=== PATIENT | male | born 1945 | race Caucasian/White ===

== ENCOUNTER 2016-11-19 06:03 | Inpatient (IN) | payer OTHER, MEDICARE ==
[~2016-11-19] VITALS: Ht 175.3 cm; Wt 66.7 kg
[~2016-11-19 06:03] MED LIST: TAMIFLU75 MG PO; XOPENEX1.25 MG/3 IH
[2016-11-19 06:43] LABS: CHLORIDE 102 mEq/L (99-109); POTASSIUM 3.8 mEq/L (3.7-5.4); SODIUM 141 mEq/L (136-147)
[2016-11-19 06:45] LABS: EOSINOPHIL (%) 0.5 % (0-5); GLUCOSE 112 mg/dL (70-99); IMMATURE GRANULOCYTE (%) 0.2 % (0.0-0.7); LYMPHOCYTE COUNT 0.9 K/uL (1.0-2.8); MCH 30.4 PG (29.0-34.0); MCHC 32.8 G/DL (30.0-36.0); MCV 92.8 FL (86-99); MEAN PLAT.VOLUME 11.4 uM^3 (9.0-12.4); MONOCYTE (%) 9.9 % (3-12); MONOCYTE COUNT 0.6 K/uL (0-0.8); NEUTROPHIL (%) 73.4 % (45-76); NEUTROPHIL COUNT 4.5 K/uL (1.8-6.4); PLATELET COUNT 173 K/uL (156-360); RBC DIS.WIDTH-CV 14.6 % (11.8-14.6); RBC DIS.WIDTH-SD 49.6 % (39-53); RED BLOOD COUNT 4.31 M/uL (4.00-5.50); WHITE BLOOD COUNT 6.1 K/uL (4.1-10.2)
[2016-11-19 06:46] LABS: ANION GAP 8 MEQ/L (2-14)
[2016-11-19 06:49] LABS: GFR ESTIMATE (CALCULATED) > 59 mL/min/; UREA NITROGEN (BUN) 9 mg/dL (9-23)
[2016-11-19 06:54] LABS: TROP-I INTERPRETATION NEGATIVE; TROPONIN-I < 0.01 ng/mL (0.0-0.30)
[2016-11-19] MEDS ORDERED: SPIRIVA1 INHALATI IH (08:12)
[2016-11-19] MEDS ORDERED: ATROVENT 00.5 MG/2.5 IH (08:12)
[2016-11-19] MEDS ORDERED: LORAZEPAM1 MG PO (08:13)
[2016-11-19] MEDS ORDERED: PREDNISONE5 MG PO (08:13)
[2016-11-19] MEDS ORDERED: PRIMIDONE250 MG PO (08:14)
[2016-11-19] MEDS ORDERED: CALCIUM 500 MG1 EACH PO (08:14)
[2016-11-19] MEDS ORDERED: MUCINEX1200 MG PO (08:15)
[2016-11-19] MEDS ORDERED: VITAMIN D32000 UNI1 PO (08:15)
[2016-11-19] MEDS ORDERED: PROBIOTIC1 EAC1 PO (08:16)
[2016-11-19] MEDS ORDERED: FIBER500 MG PO (08:16)
[2016-11-19] MEDS ORDERED: CLOTRIMAZOLE10 MG PO (08:16)
[2016-11-19] MEDS ORDERED: LEVALBUTER1.25 MG/0. IH (08:17)
[2016-11-19] MEDS ORDERED: SALINE NASAL SP45 ML BOTH NARES (08:17)
[2016-11-19] MEDS ORDERED: SYMBICORT60 INHALAT IH (08:18)
[2016-11-19] MEDS ORDERED: NIZORAL A-D120 ML TP (08:18)
[2016-11-19] MEDS ORDERED: THEOPHYLLINE400 MG PO (08:18)
[2016-11-19 10:10] LABS: THEOPHYLLINE 2.5 MCG/ML (10-20)
[2016-11-19 10:35] VITALS: BP 115/68
[2016-11-19 14:26] LABS: INFLUENZA A VIRAL ANTIGEN NEGATIVE; INFLUENZA B VIRAL ANTIGEN NEGATIVE
[2016-11-19 15:41] VITALS: BP 121/66
[2016-11-19 15:57] LABS: TROP-I INTERPRETATION NEGATIVE; TROPONIN-I 0.02 ng/mL (0.0-0.30)
[2016-11-19 20:13] VITALS: BP 139/76
[2016-11-19 23:06] VITALS: BP 136/73
[2016-11-20 08:36] VITALS: BP 133/67
[2016-11-20 11:33] VITALS: BP 135/62
[2016-11-20 15:44] VITALS: BP 130/76
[2016-11-20 21:09] VITALS: BP 128/70
[2016-11-21 00:03] VITALS: BP 131/69
[2016-11-21 04:05] VITALS: BP 105/61
[2016-11-21 06:29] LABS: EOSINOPHIL (%) 0 % (0-5); HEMATOCRIT 35.9 % (38.0-50.0); IMMATURE GRANULOCYTE (%) 0.2 % (0.0-0.7); LYMPHOCYTE COUNT 0.8 K/uL (1.0-2.8); MCHC 33.1 G/DL (30.0-36.0); MCV 93.5 FL (86-99); MEAN PLAT.VOLUME 11.8 uM^3 (9.0-12.4); MONOCYTE (%) 13.5 % (3-12); MONOCYTE COUNT 0.7 K/uL (0-0.8); NEUTROPHIL (%) 69.9 % (45-76); NEUTROPHIL COUNT 3.6 K/uL (1.8-6.4); PLATELET COUNT 169 K/uL (156-360); RBC DIS.WIDTH-CV 14.7 % (11.8-14.6); RED BLOOD COUNT 3.84 M/uL (4.00-5.50); WHITE BLOOD COUNT 5.1 K/uL (4.1-10.2)
[2016-11-21 06:55] LABS: ALKALINE PHOSPHATASE 64 IU/L (3-129); ANION GAP 9 MEQ/L (2-14); CHLORIDE 98 MEQ/L (99-109); GFR ESTIMATE (CALCULATED) > 59 mL/min/; GLUCOSE 115 mg/dL (70-99); SAMPLE HEMOLYSIS CHECK 0; SAMPLE ICTERIC CHECK 0; SAMPLE LIPEMIA CHECK 0; SODIUM 138 MEQ/L (136-147); TOTAL BILIRUBIN 0.3 MG/DL (0.0-1.0); UREA NITROGEN (BUN) 13 mg/dL (9-23)
[2016-11-21 06:58] LABS: POTASSIUM 4.8 MEQ/L (3.7-5.4)
[2016-11-21 12:00] VITALS: BP 111/73
[2016-11-21 17:38] VITALS: BP 145/67
[2016-11-21 19:50] VITALS: BP 126/81
[2016-11-22 08:08] VITALS: BP 115/63
[2016-11-22 11:37] VITALS: BP 119/60
[2016-11-22] MEDS ORDERED: CEFTIN500 MG PO (14:55)
[2016-11-22] MEDS ORDERED: BENZONATATE100 MG PO (14:56)
[2016-11-22] MEDS ORDERED: PREDNISONE20 MG PO (14:57)
== END 2016-11-22 16:53 | disposition home or self-care (01) | DRG 190 ==
LOC: EME → EDBD 06:03 → EDOF 08:06 → 5WEST 08:06 → 2EASTP 11-20 09:16
PROVIDERS: Emergency Medicine; Hospitalist; Internal Medicine
DX: J44.1 Chronic obstructive pulmonary disease with (acute) exacerbation (principal); J96.21 Acute and chronic respiratory failure with hypoxia; J44.0 Chronic obstructive pulmonary disease with (acute) lower respiratory infection; J20.9 Acute bronchitis, unspecified; K21.9 Gastro-esophageal reflux disease without esophagitis; F41.9 Anxiety disorder, unspecified; Z99.81 Dependence on supplemental oxygen; Z88.5 Allergy status to narcotic agent; Z87.891 Personal history of nicotine dependence
CPT/HCPCS: 71010; 71250; 80048; 80053; 80198; 83880; 84484; 85025; 85379; 87040; 87070; 87205; 87502; 87651 90; 93005; 94640; 94640 76; 94667; 94760; 94799; 99202; 99281; 99285; G0378; J0456; J0696; J1650; J2930; J7050; J7644

== ENCOUNTER 2017-03-23 11:44 | Inpatient (IN) | payer OTHER, MEDICARE ==
[~2017-03-23] VITALS: Ht 172.7 cm; Wt 64.8 kg
[~2017-03-23 11:44] MED LIST changes: +ATROVENT 00.5 MG/2.5 IH; +BENZONATATE100 MG PO; +CALCIUM 500 MG1 EACH PO; +CEFTIN500 MG PO; +CLOTRIMAZOLE10 MG PO; +FIBER500 MG PO; +LEVALBUTER1.25 MG/0. IH; +LORAZEPAM1 MG PO; +MUCINEX1200 MG PO; +NIZORAL A-D120 ML TP; +PREDNISONE20 MG PO; +PREDNISONE5 MG PO; +PRIMIDONE250 MG PO; +PROBIOTIC1 EAC1 PO; +SALINE NASAL SP45 ML BOTH NARES; +SPIRIVA1 INHALATI IH; +SYMBICORT60 INHALAT IH; +THEOPHYLLINE400 MG PO; +VITAMIN D32000 UNI1 PO
[2017-03-23 14:32] LABS: HEMATOCRIT 40.1 % (38.0-50.0); MCH 30.7 PG (29.0-34.0); MCHC 33.4 G/DL (30.0-36.0); MEAN PLAT.VOLUME 11.2 uM^3 (9.0-12.4); PLATELET COUNT 202 K/uL (156-360); RBC DIS.WIDTH-CV 13.8 % (11.8-14.6); RBC DIS.WIDTH-SD 46.5 % (39-53); RED BLOOD COUNT 4.36 M/uL (4.00-5.50); WHITE BLOOD COUNT 7.9 K/uL (4.1-10.2)
[2017-03-23 14:41] LABS: CHLORIDE 101 mEq/L (99-109); POTASSIUM 4.5 mEq/L (3.7-5.4); SODIUM 138 mEq/L (136-147)
[2017-03-23 14:42] LABS: GLUCOSE 113 mg/dL (70-99)
[2017-03-23 14:44] LABS: ANION GAP 12 MEQ/L (2-14)
[2017-03-23 14:46] LABS: GFR ESTIMATE (CALCULATED) > 59 mL/min/
[2017-03-23 14:47] LABS: UREA NITROGEN (BUN) 17 mg/dL (9-23)
[2017-03-23 14:54] LABS: TROP-I INTERPRETATION NEGATIVE; TROPONIN-I < 0.01 ng/mL (0.0-0.30)
[2017-03-23] MEDS ORDERED: SUPER CALCIUM600 MG PO (15:44)
[2017-03-23] MEDS ORDERED: KETOCONAZOLE120 ML TP (15:46)
[2017-03-23] MEDS ORDERED: LUNESTA3 MG PO (15:46)
[2017-03-23] MEDS ORDERED: HYDROCODON-ACE1 EAC7 PO (15:46)
[2017-03-23 18:31] VITALS: BP 141/75
[2017-03-23 19:30] VITALS: BP 131/93
[2017-03-23 21:22] LABS: TROP-I INTERPRETATION NEGATIVE; TROPONIN-I 0.01 ng/mL (0.0-0.30)
[2017-03-24 00:23] VITALS: BP 143/81
[2017-03-24 02:55] LABS: HEMATOCRIT 36.6 % (38.0-50.0); MCH 30.5 PG (29.0-34.0); MCHC 33.6 G/DL (30.0-36.0); MCV 90.8 FL (86-99); MEAN PLAT.VOLUME 11.3 uM^3 (9.0-12.4); PLATELET COUNT 186 K/uL (156-360); RBC DIS.WIDTH-CV 13.4 % (11.8-14.6); RBC DIS.WIDTH-SD 44.7 % (39-53); RED BLOOD COUNT 4.03 M/uL (4.00-5.50); WHITE BLOOD COUNT 7.2 K/uL (4.1-10.2)
[2017-03-24 03:16] LABS: CHLORIDE 100 mEq/L (99-109); POTASSIUM 4.1 mEq/L (3.7-5.4); SODIUM 135 mEq/L (136-147)
[2017-03-24 03:18] LABS: GLUCOSE 121 mg/dL (70-99)
[2017-03-24 03:19] LABS: ANION GAP 10 MEQ/L (2-14)
[2017-03-24 03:21] LABS: GFR ESTIMATE (CALCULATED) > 59 mL/min/
[2017-03-24 03:22] LABS: UREA NITROGEN (BUN) 22 mg/dL (9-23)
[2017-03-24 03:24] LABS: TROP-I INTERPRETATION NEGATIVE; TROPONIN-I 0.02 ng/mL (0.0-0.30)
[2017-03-24 05:00] VITALS: BP 145/69
[2017-03-24 07:38] VITALS: BP 146/75
[2017-03-24 07:52] LABS: INTERNAL CONTROL VALID? YES
[2017-03-24 11:56] VITALS: BP 119/61
[2017-03-24 15:33] VITALS: BP 114/59
[2017-03-24 19:20] VITALS: BP 139/65
[2017-03-24 19:57] LABS: METH RESISTANT S AUREUS PCR NEGATIVE (NEGATIVE)
[2017-03-24 20:18] LABS: PROBE CHECK PASS; SPECIMEN PROCESSING CONTROL PASS
[2017-03-25] VITALS (7 sets, daily range): BP systolic 109–147; BP diastolic 53–71
[2017-03-25 05:37] LABS: ANION GAP 9 MEQ/L (2-14); CHLORIDE 104 MEQ/L (99-109); GFR ESTIMATE (CALCULATED) > 59 mL/min/; GLUCOSE 113 mg/dL (70-99); POTASSIUM 4.1 MEQ/L (3.7-5.4); SAMPLE HEMOLYSIS CHECK 0; SAMPLE ICTERIC CHECK 0; SAMPLE LIPEMIA CHECK 0; SODIUM 139 MEQ/L (136-147); UREA NITROGEN (BUN) 9 mg/dL (9-23)
[2017-03-25 06:25] LABS: HEMATOCRIT 34.6 % (38.0-50.0); MCH 30.6 PG (29.0-34.0); MCHC 32.9 G/DL (30.0-36.0); MEAN PLAT.VOLUME 11.9 uM^3 (9.0-12.4); PLATELET COUNT 157 K/uL (156-360); RBC DIS.WIDTH-CV 13.7 % (11.8-14.6); RBC DIS.WIDTH-SD 46.5 % (39-53); RED BLOOD COUNT 3.72 M/uL (4.00-5.50); WHITE BLOOD COUNT 3.6 K/uL (4.1-10.2)
[2017-03-26 03:30] VITALS: BP 112/56
[2017-03-26 05:52] LABS: HEMATOCRIT 31.8 % (38.0-50.0); MCH 30.8 PG (29.0-34.0); MCHC 33.3 G/DL (30.0-36.0); MCV 92.4 FL (86-99); MEAN PLAT.VOLUME 11.6 uM^3 (9.0-12.4); PLATELET COUNT 168 K/uL (156-360); RBC DIS.WIDTH-CV 13.6 % (11.8-14.6); RBC DIS.WIDTH-SD 45.8 % (39-53); RED BLOOD COUNT 3.44 M/uL (4.00-5.50); WHITE BLOOD COUNT 3.5 K/uL (4.1-10.2)
[2017-03-26 07:30] VITALS: BP 130/66
[2017-03-26] MEDS ORDERED: AZITHROMYCIN500 M1 PO (10:02)
[2017-03-26] MEDS ORDERED: PREDNISONE10 MG PO (10:02)
[2017-03-26] MEDS ORDERED: LEVAQUIN750 MG PO (10:04)
[2017-03-26 12:08] VITALS: BP 124/69
== END 2017-03-26 18:08 | disposition home or self-care (01) | DRG 189 ==
LOC: EME 11:44 → EDOF 16:25 → 4EAST 16:25
PROVIDERS: Emergency Medicine; Internal Medicine; Internal Medicine Infectious Disease
DX: J96.21 Acute and chronic respiratory failure with hypoxia (principal); J18.9 Pneumonia, unspecified organism; J84.10 Pulmonary fibrosis, unspecified; Z99.81 Dependence on supplemental oxygen; J44.0 Chronic obstructive pulmonary disease with (acute) lower respiratory infection; C88.0 Waldenstrom macroglobulinemia; J44.1 Chronic obstructive pulmonary disease with (acute) exacerbation; K59.00 Constipation, unspecified; Z79.52 Long term (current) use of systemic steroids; Z87.891 Personal history of nicotine dependence; R11.0 Nausea; J20.9 Acute bronchitis, unspecified
CPT/HCPCS: 36415; 71010; 80048; 80198; 84484; 85027; 87040; 87070; 87205; 87420; 87449; 87641; 93005; 94640; 94640 76; 94799; 97530 GO; 99202; 99281; 99285; J0456; J0696; J1100; J1650; J2543; J2930; J3370; J7030; J7050; J7512; J7644